=== PATIENT | male | born 1970 | race Caucasian/White ===

== ENCOUNTER 2016-12-12 16:33 | Emergency (ER) | payer OTHER ==
--- NOTE | 2016-12-12 16:55 | ER Document Report ---
ED Flu Like - General Mode of Arrival: Medic Information source: Patient, Relative TRAVEL OUTSIDE OF THE [place] IN LAST 30 DAYS: No - HPI Patient complains to provider of: Flu-like symptoms Onset: Yesterday Associated symptoms: Other - see above <MARCEL LANGE - Last Filed: 12/12/16 20:16> <MALIKCELINE PRIEST - Last Filed: 12/12/16 22:19> - General Chief Complaint: Flu Symptoms Stated Complaint: FLU SYMPTOMS Notes: 46 year old male with no prior medical problems presents to the ED via EMS from Urgent Care after testing positive for the flu and being told he has an elevated heart rate. Patient's reports that he was "out of it" while at the Urgent Care. Patient has body aches, fever (103.3F 10 minutes after 800 mg Ibuprofen was given), and a cough. Patient denies shortness of breath. Patient' s reports that all these symptoms started last night. Patient denies getting the flu shot this year. (MARCEL LANGE) - Related Data Allergies/Adverse Reactions: No Known Allergies Allergy (Unverified 12/12/16 16:59) Past Medical History - General Information source: Patient, Relative - Social History Smoking Status: Current Every Day Smoker Chew tobacco use (# tins/day): No Frequency of alcohol use: Occasional Drug Abuse: None Family History: Reviewed & Not Pertinent Patient has suicidal ideation: No Patient has homicidal ideation: No - Medical History Medical History: Negative Renal/ Medical History: Denies: Hx Peritoneal Dialysis Surgical Hx: Negative <MARCEL LANGE - Last Filed: 12/12/16 20:16> Review of Systems - Review of Systems Constitutional: See HPI, Fever - 103.3F, Malaise EENT: No symptoms reported Cardiovascular: See HPI, Other - elevated heart rate Respiratory: See HPI, Cough. denies: Short of breath Gastrointestinal: No symptoms reported Genitourinary: No symptoms reported Male Genitourinary: No symptoms reported Musculoskeletal: No symptoms reported Skin: No symptoms reported Hematologic/Lymphatic: No symptoms reported Neurological/Psychological: No symptoms reported -: Yes All other systems reviewed and negative <MARCEL LANGE - Last Filed: 12/12/16 20:16> Physical Exam - Vital signs Interpretation: Tachycardic, Febrile - General General appearance: Alert, Other - appears uncomfortable In distress: None - HEENT Head: Normocephalic, Atraumatic Eyes: Normal Extraocular movements intact: Yes Pupils: PERRL - Respiratory Respiratory status: No respiratory distress Breath sounds: Decreased air movement - bilaterally. No: Normal - Cardiovascular Rhythm: Regular, Tachycardia Heart sounds: Normal auscultation - Abdominal Inspection: Normal - Back Back: Normal - Extremities General upper extremity: Normal inspection, Normal ROM General lower extremity: Normal inspection, Normal ROM - Neurological Neuro grossly intact: Yes Cognition: Normal Orientation: AAOx4 Cornell Coma Scale Eye Opening: Spontaneous Stalin Coma Scale Verbal: Oriented Cornell Coma Scale Motor: Obeys Commands Cornell Coma Scale Total: 15 Speech: Normal - Psychological Associated symptoms: Normal affect, Normal mood - Skin Skin Temperature: Hot Skin Moisture: Dry Skin Color: Normal <MARCEL LANGE - Last Filed: 12/12/16 20:16> <CELINE FELIX - Last Filed: 12/12/16 22:19> - Vital signs Vitals: Pulse Ox 97 12/12/16 16:45 Pulse Ox 97 12/12/16 16:45 (MARCEL LANGE) Course - Laboratory Result Diagrams: 12/12/16 16:45 <MARCEL LANGE - Last Filed: 12/12/16 20:16> - Laboratory Result Diagrams: 12/12/16 16:45 <CELINE FELIX - Last Filed: 12/12/16 22:19> - Re-evaluation Re-evalutation: 12/12/16 22:18 Patient was diagnosed with influenza at urgent care today. Patient comes in with fever, tachycardia, headache, wheezing. Patient has a history of smoking, one pack a day. Patient improved after breathing treatment and medication, fluids. Patient would like to go home. Patient is encouraged to stop smoking. Will be discharged home with steroids and albuterol. Given Tamiflu at urgent care. Stable for discharge. Return if any worsening or concerning symptoms. ( CELINE FELIX) - Vital Signs Vital signs: Temp Pulse Resp BP Pulse Ox 99 18 110/67 98 12/12/16 18:47 12/12/16 18:47 12/12/16 19:05 12/12/16 18:47 - Laboratory Laboratory results interpreted by me: 12/12/16 17:55 Urine Blood SMALL H Discharge <MARCEL LANGE - Last Filed: 12/12/16 20:16> <CELINE FELIX - Last Filed: 12/12/16 22:19> - Discharge Clinical Impression: Influenza, Bronchospasm Condition: Stable Disposition: HOME, SELF-CARE Instructions: Influenza ([facility]), Bronchospasm ([facility]), Bronchodilators ([facility]) Prescriptions: Prednisone 40 mg PO DAILY #6 tablet Forms: Return to Work Scribe Attestation: 12/12/16 22:19 I personally performed the services described in the documentation, reviewed and edited the documentation which was dictated to the scribe in my presence, and it accurately records my words and actions. (CELINE FELIX) Scribe Documentation - Scribe Written by Scribe:: Heavenly Flores, 12/12/2016 1708 acting as scribe for :: Selena <MARCEL LANGE - Last Filed: 12/12/16 20:16>
[2016-12-12] MEDS ORDERED: ONDANSETRON HCL INJ/PF 4 MG/2 ML SDV IV ONE (17:16)
[2016-12-12] MEDS ORDERED: IPRATROPIUM/ALBUTEROL 0.5-2.5 MG/3 ML AMPUL NEB ONE (17:16)
[2016-12-12] MEDS ORDERED: NORMAL SALINE 1000 ML 1,000 ML IV ONE (17:16)
[2016-12-12] MEDS ORDERED: ACETAMINOPHEN 325 MG TABLET PO ONE (17:16)
[2016-12-12 17:21] LABS: ALANINE AMINOTRANSFERASE 50 U/L (21-72); ALBUMIN 3.8 g/dL (3.5-5.0); ALKALINE PHOSPHATASE 67 U/L (38-126); ANION GAP 10 (5-19); ASPARTATE AMINO TRANSFERASE 22 U/L (17-59); BILIRUBIN,TOTAL 0.5 mg/dL (0.2-1.3); BLOOD UREA NITROGEN 11 mg/dL (7-20); CALCIUM 8.6 mg/dL (8.4-10.2); CARBON DIOXIDE 23 mmol/L (22-30); CHLORIDE 107 mmol/L (98-107); CREATINE KINASE 165 U/L (55-170); CREATININE RESULT 0.89 mg/dL (0.52-1.25); GLUCOSE 89 mg/dL (75-110); POTASSIUM 3.7 mmol/L (3.6-5.0); SODIUM 139.6 mmol/L (137-145); TOTAL PROTEIN 6.4 g/dL (6.3-8.2)
[2016-12-12] MEDS ORDERED: ALBUTEROL SULFATE HFA (90 MCG/PUFF) 8 GM MDI (1 MDI/ER DISP) IH ONE (18:30)
[2016-12-12] MEDS ORDERED: PREDNISONE 20 MG TABLET PO ONE (18:30)
[2016-12-12 18:34] LABS: APPEARANCE,URINE CLEAR; BILIRUBIN,URINE NEGATIVE (NEGATIVE); GLUCOSE, URINE NEGATIVE (NEGATIVE); KETONES,URINE NEGATIVE (NEGATIVE); LEUKOCYTE ESTERASE,URINE NEGATIVE (NEGATIVE); NITRITE,URINE NEGATIVE (NEGATIVE); PROTEIN,URINE NEGATIVE (NEGATIVE); URINE SPECIFIC GRAVITY 1.014; UROBILINOGEN,URINE NEGATIVE mg/dL (<2.0)
[2016-12-12 19:07] VITALS: BP 110/67
== END 2016-12-12 19:05 | disposition home or self-care (01) ==
LOC: ER 16:33
DX: J11.1 Influenza due to unidentified influenza virus with other respiratory manifestations (principal); J98.01 Acute bronchospasm; R50.9 Fever, unspecified; R00.0 Tachycardia, unspecified; R05 Cough; R53.81 Other malaise; R51 Headache; R06.2 Wheezing; F17.200 Nicotine dependence, unspecified, uncomplicated
CPT/HCPCS: 94640 ×2; 99284; 96361; 96374; 36415; 82553; 82550; 80053; 81001; J7512; J2405; J7030; J3490; J7620